=== PATIENT | female | born 1990 | race Caucasian/White ===

== ENCOUNTER 2019-05-12 18:05 | Emergency (ER) | payer BC, OTHER ==
[~2019-05-12] VITALS: Ht 170.2 cm; Wt 69.9 kg
[2019-05-12 18:21] VITALS: BP_SYST 122
[2019-05-12] MEDS ORDERED: NACL 0.9% 1,000 ML IV ONE (19:30)
[2019-05-12] MEDS ORDERED: KETOROLAC TROMETHAMINE 30 MG VIAL IVP ONE (19:30)
[2019-05-12 20:25] LABS: HCG,QUAL RESULT NEGATIVE (NEGATIVE)
[2019-05-12 20:26] LABS: BILIRUBIN,URINE NEGATIVE (NEGATIVE); CLARITY/URINE CLEAR (CLEAR); COLOR,URINE YELLOW (YELLOW); GLUCOSE,URINE NEGATIVE (NEGATIVE); KETONES,URINE 1+ (NEGATIVE); LEUKOCYTE ESTERASE ,URINE NEGATIVE (NEGATIVE); NITRITE, URINE NEGATIVE (NEGATIVE); PROTEIN URINE NEGATIVE (NEGATIVE); UROBILINOGEN,URINE 0.2 (0.2-1.0)
[2019-05-12 20:27] LABS: BLOOD, URINE TRACE (NEGATIVE)
[2019-05-12 20:28] LABS: BACTERIA,URINE FEW /HPF (None Seen); RBC,URINE 0-3 /HPF (0-3); WBC,URINE 0-3 /HPF (0-3)
[2019-05-12 20:54] VITALS: BP_SYST 120
== END 2019-05-12 20:54 | disposition home or self-care (01) ==
LOC: SED 18:05
DX: G44.209 Tension-type headache, unspecified, not intractable (principal); M79.10 Myalgia, unspecified site; R03.0 Elevated blood-pressure reading, without diagnosis of hypertension
CPT/HCPCS: 81000; 81025; 84703; 96374; 99283; J1885; J7030

== ENCOUNTER 2021-04-22 17:21 | Emergency (ER) | payer BC, OTHER ==
[~2021-04-22] VITALS: Ht 170.2 cm; Wt 74.4 kg
[2021-04-22 17:32] VITALS: BP_SYST 134
[2021-04-22] MEDS ORDERED: AMOXICILLIN/CLAVULANATE POTASSIUM 875 MG TABLET PO ONE (19:45)
[2021-04-22] MEDS ORDERED: AMOX-426 PO (19:55)
[2021-04-22 20:10] VITALS: BP_SYST 134
== END 2021-04-22 20:10 | disposition home or self-care (01) ==
LOC: SED 17:21
DX: S61.032A Puncture wound without foreign body of left thumb without damage to nail, initial encounter (principal); W55.01XA Bitten by cat, initial encounter; Y93.89 Activity, other specified; Y92.89 Other specified places as the place of occurrence of the external cause; Y99.8 Other external cause status
CPT/HCPCS: 99283

== ENCOUNTER 2024-05-06 23:14 | Emergency (ER) | payer BC, OTHER ==
[~2024-05-06] VITALS: Ht 170.2 cm; Wt 74.8 kg
[~2024-05-06 23:14] MED LIST: AMOX-426 PO
[2024-05-06 23:23] VITALS: BP_SYST 139; PULSE 82; RESP 18; TEMP 97.2; O2SAT 99
[2024-05-07 00:47] LABS: BASOPHILS % (AUTO) 0.6 % (0.0-2.0); EOSINOPHILS % (AUTO) 0.8 % (0.0-4.0); HEMATOCRIT 38.8 % (36-48); HEMOGLOBIN 13.3 g/dL (12.0-16.0); LYMPHOCYTES # (AUTO) 2.4 K/uL (1.0-5.5); LYMPHOCYTES % (AUTO) 42.6 % (20.5-51.5); MEAN CORPUSCULAR HEMOGLOBIN 30 pg (27-31); MEAN CORPUSCULAR HGB CONC 34 % (32-36); MEAN CORPUSCULAR VOLUME 86 fL (79.0-98.0); MONOCYTES # (AUTO) 0.4 K/uL (0.0-1.0); MONOCYTES % (AUTO) 7.4 % (1.7-9.3); NEUTROPHILS # (AUTO) 2.7 K/uL (1.8-7.7); NEUTROPHILS % (AUTO) 48.6 % (40.0-70.0); PLATELET COUNT (AUTO) 346 K/uL (130-430); RED CELL DISTRIBUTION WIDTH 13.2 % (9.0-15.0); WHITE BLOOD COUNT (AUTO) 5.5 K/uL (4.8-10.8)
[2024-05-07 01:14] LABS: ALBUMIN 3.9 g/dL (3.4-4.8); CALCIUM 9.1 mg/dL (8.4-11.0); CREATININE 0.83 mg/dL (0.55-1.30); POTASSIUM 3.4 mmol/L (3.5-5.1); TOTAL BILIRUBIN 0.4 mg/dL (0.0-1.0); TOTAL PROTEIN, SERUM 7.8 g/dL (6.4-8.3)
[2024-05-07 01:22] LABS: BILIRUBIN,DIRECT 0.1 mg/dL (0.0-0.3); THYROID STIMULATING HORMONE 5.3 uIu/mL (0.36-3.74)
[2024-05-07] MEDS ORDERED: SYN75 PO (01:42)
[2024-05-07 01:46] VITALS: BP_SYST 144; PULSE 102; RESP 18; TEMP 97.3; O2SAT 99
== END 2024-05-07 01:46 | disposition home or self-care (01) ==
LOC: SED 23:14
DX: R53.1 Weakness (principal); E03.9 Hypothyroidism, unspecified; G43.909 Migraine, unspecified, not intractable, without status migrainosus; F32.A Depression, unspecified; Z79.899 Other long term (current) drug therapy; Z79.2 Long term (current) use of antibiotics
CPT/HCPCS: 36415; 80048; 80076; 84436; 84443; 85025; 99283

== ENCOUNTER 2024-09-12 02:14 | Emergency (ER) | payer OTHER ==
[~2024-09-12] VITALS: Ht 170.2 cm; Wt 74.8 kg
[~2024-09-12 02:14] MED LIST changes: +SYN75 PO
[2024-09-12 02:20] VITALS: BP_SYST 143; PULSE 93; RESP 16; TEMP 97.1; O2SAT 99
[2024-09-12 03:31] LABS: ANION GAP 8 (5-15); CALCIUM 9.4 mg/dL (8.4-11.0); CARBON DIOXIDE 30 mmol/L (23-29); CHLORIDE 105 mmol/L (98-107); CREATININE 0.87 mg/dL (0.55-1.30); GFR AFRICAN AMERICAN 95 mL/min (>90); GLUCOSE 124 mg/dL (74-106); POTASSIUM 3.5 mmol/L (3.5-5.1); SODIUM SERUM 143 mmol/L (136-145); THYROID STIMULATING HORMONE 4.22 uIu/mL (0.36-3.74); UREA NITROGEN, BLOOD 9 mg/dL (8-21)
[2024-09-12 03:33] LABS: BASOPHILS % (AUTO) 0.6 % (0.0-2.0); EOSINOPHILS # (AUTO) 0.1 K/uL (0.0-0.4); EOSINOPHILS % (AUTO) 1.4 % (0.0-4.0); GFR NON AFRICAN-AMERICAN 79 mL/min (>90); LYMPHOCYTES # (AUTO) 3.9 K/uL (1.0-5.5); LYMPHOCYTES % (AUTO) 55.8 % (20.5-51.5); MEAN CORPUSCULAR HEMOGLOBIN 29 pg (27-31); MEAN CORPUSCULAR HGB CONC 33 % (32-36); MEAN CORPUSCULAR VOLUME 87 fL (79.0-98.0); MONOCYTES # (AUTO) 0.5 K/uL (0.0-1.0); MONOCYTES % (AUTO) 7.8 % (1.7-9.3); NEUTROPHILS # (AUTO) 2.4 K/uL (1.8-7.7); NEUTROPHILS % (AUTO) 34.4 % (40.0-70.0); PLATELET COUNT (AUTO) 388 K/uL (130-430); RED BLOOD CELL COUNT(AUTO) 4.47 MIL/uL (4.2-6.2); RED CELL DISTRIBUTION WIDTH 13.6 % (9.0-15.0)
[2024-09-12 03:34] LABS: ALCOHOL, BLOOD < 3 mg/dL (<10)
[2024-09-12 03:45] VITALS: BP_SYST 134; PULSE 89; RESP 18; TEMP 97.3; O2SAT 99
[2024-09-12] MEDS ORDERED: LEVO75TA7 PO (03:52)
[2024-09-12 04:16] LABS: BARBITURATE, URINE NEGATIVE (NEG <=200); BENZODIAZEPINE, URINE NEGATIVE (NEG <=150); CANNABINOID, URINE NEGATIVE (NEG <=50); COCAINE, URINE NEGATIVE (NEG <=150); METHAMPHETAMINES SCREEN,URINE NEGATIVE (NEG <=500); OPIATE, URINE NEGATIVE (NEG <=100); PHENCYCLIDINE SCREEN,URINE NEGATIVE (NEG <=25); UR TRICYCLIC ANTIDEPRESSANTS NEGATIVE (NEG <=300); URINE AMPHETAMINE NEGATIVE (NEG <=500); URINE METHADONE NEGATIVE (NEG <=200); URINE OXYCODONE SCREEN NEGATIVE (NEG <=100)
== END 2024-09-12 04:00 | disposition home or self-care (01) ==
LOC: SED 02:14
DX: R00.2 Palpitations (principal); R03.0 Elevated blood-pressure reading, without diagnosis of hypertension; R00.0 Tachycardia, unspecified; E03.9 Hypothyroidism, unspecified; Z91.148 Patient's other noncompliance with medication regimen for other reason; G43.909 Migraine, unspecified, not intractable, without status migrainosus; F32.A Depression, unspecified; Z79.899 Other long term (current) drug therapy; Z79.2 Long term (current) use of antibiotics
CPT/HCPCS: 99285; 71045; 80307; 80048; 83880; 84443; 85025; 84484; 36415; 93005; 81025; G0482